=== PATIENT | male | born 1950 | race Caucasian/White ===

== ENCOUNTER 2016-12-12 20:48 | Emergency (ER) | payer BC ==
--- NOTE | 2016-12-19 07:41 | ER ---
ADMIT: 12/12/2016 RM/LOC: ER [facility] MR#: [id number] [address] [id number] [address] [place] [address] Emergency Room Report SEX: M AGE: 66 : 1950 DATE: 12/12/2016 TIME: 2048 hours. Please refer to my T-sheet for complete H and P. Briefly, the patient comes in with back pain down his right hip. Started yesterday, it seems to be worse at times with spasms. No trauma. No numbness or tingling. No loss of bowel or bladder control. PHYSICAL EXAMINATION: He has tenderness about the right posterior hip and low back. He has a negative straight leg raise. Seems to extend from his lower back down his buttocks. There are no neurological findings. EMERGENCY DEPARTMENT COURSE: I gave him prednisone 20 p.o. He is ready for discharge. ASSESSMENT: Right lumbar pain/sciatica. PLAN: Prednisone 20 a day for 7 days. Flexeril 10 mg, I gave him 20. Use Tylenol or Motrin. Follow up with Dr. Del Rosario next week. Return if worse. Miguel Cabrera MD/ rossy JOB #: [id number] CC: Miguel Cabrera MD, Attending Physician
== END 2016-12-12 21:50 | disposition home or self-care (01) ==
LOC: ER 20:48
DX: M54.41 Lumbago with sciatica, right side (principal)